=== PATIENT | male | born 1955 | race African-American/Black ===

== ENCOUNTER 2017-07-29 13:39 | Inpatient (IN) | payer OTHER ==
[~2017-07-29] VITALS: Ht 165.1 cm; Wt 102.1 kg
[2017-07-29] MEDS ORDERED: SODIUM CHLORIDE 0.9% 1,000 ML IV ONE (14:12)
[2017-07-29 14:48] LABS: INR 1.3; PROTHROMBIN TIME 13.2 sec (9.4-11.6)
[2017-07-29 14:49] LABS: BASOPHILS % 1.2 % (0.0-2.0); EOSINOPHILS % 1.5 % (0.0-5.0); HEMATOCRIT. 30.1 % (42.0-52.0); HEMOGLOBIN. 10.4 g/dL (14.0-18.0); LYMPHOCYTES % 39.1 % (20.0-50.0); MEAN CORPUSCULAR VOLUME 98.4 fL (80.0-94.0); MEAN PLATELET VOLUME 8.8 fl (7.4-10.4); MONOCYTES % 7.4 % (2.0-8.0); NEUTROPHILS % 50.8 % (40.0-76.0); PLATELET 79 x1000/uL (130-400); RED BLOOD CELL COUNT 3.05 mill/uL (4.7-6.1); RED CELL DISTRIBUTION WIDTH 17.2 % (11.6-14.6)
[2017-07-29 15:01] LABS: AMMONIA 130 uMol/L (<32); CARBON DIOXIDE 21 mEq/L (21-32); CHLORIDE 111 mEq/L (98-107); CREATINE KINASE 143 IU/L (39-308); ETHANOL BLOOD < 10 mg/dL; TROPONIN I < 0.02 ng/mL (0.00-0.04)
[2017-07-29] MEDS ORDERED: IBUP-2030 PO (15:29)
[2017-07-29] MEDS ORDERED: RANI150T7 PO (15:29)
[2017-07-29] MEDS ORDERED: LACTULOSE 20G/30ML UDC PO ONE (15:30)
[2017-07-29] MEDS ORDERED: METF10002 PO (15:31)
[2017-07-29] MEDS ORDERED: HYDR12.54 PO (15:31)
[2017-07-29] MEDS ORDERED: OMEP20TA2 PO (15:31)
[2017-07-29] MEDS ORDERED: LISI-186 PO (15:31)
[2017-07-29 15:37] LABS: CLARITY URINE CLEAR (CLEAR); COLOR URINE YELLOW (YELLOW); GLUCOSE URINE NEGATIVE (NEGATIVE); KETONES URINE TRACE (NEGATIVE); LEUKOCYTE ESTERASE URINE TRACE (NEGATIVE); NITRITE URINE POSITIVE (NEGATIVE); OCCULT BLOOD URINE NEGATIVE (NEGATIVE); PH URINE 7.5 (4.5-8.0); PROTEIN URINE NEGATIVE (NEGATIVE); SPECIFIC GRAVITY URINE 1.012 (1.005-1.030)
[2017-07-29 16:08] LABS: *AMPHETAMINES SCREEN URINE NEGATIVE (NEGATIVE); *BARBITURATES SCREEN URINE NEGATIVE (NEGATIVE); *BENZODIAZEPINES SCREEN URINE NEGATIVE (NEGATIVE); *COCAINE SCREEN URINE NEGATIVE (NEGATIVE); CANNABINOID URINE SCREEN NEGATIVE (NEGATIVE); METHADONE URINE SCREEN NEGATIVE (NEGATIVE); OPIATES URINE SCREEN NEGATIVE (NEGATIVE); PHENCYCLIDINE URINE SCREEN NEGATIVE (NEGATIVE)
[2017-07-29] MEDS ORDERED: SODIUM CHLORIDE 0.9% 1000ML BAG (SEPSIS BOLUS) IV ONE (16:15)
[2017-07-29] MEDS ORDERED: ENOXAPARIN 40MG/0.4ML SYR SUBCUT SCH (16:45)
[2017-07-29] MEDS ORDERED: ACETAMINOPHEN 325MG TABLET PO PRN (16:45)
[2017-07-29] MEDS ORDERED: GUAIFENESIN 200MG/10ML SUGAR FREE UDC PO PRN (16:45)
[2017-07-29] MEDS ORDERED: ONDANSETRON HCL 4MG/2ML VIAL IV PRN (16:45)
[2017-07-29] MEDS ORDERED: MAGNESIUM/ALUMINUM HYDROXIDE/SIMETHICONE 30ML UDC PO PRN (16:45)
[2017-07-29] MEDS ORDERED: CLONIDINE 0.1MG TABLET PO PRN (16:45)
[2017-07-29] MEDS ORDERED: DOCUSATE SODIUM 100MG CAPSULE PO PRN (16:45)
[2017-07-29] MEDS ORDERED: DIPHENHYDRAMINE 50MG/ML VIAL IV PRN (16:45)
[2017-07-29] MEDS ORDERED: IPRATROPIUM/ALBUTEROL 0.5-3(2.5)MG/3ML NEB INH PRN (16:45)
[2017-07-29] MEDS ORDERED: IOHEXOL-300 100 ML BOTTLE ONE (17:16)
[2017-07-29 18:31] VITALS: BP 145/76
[2017-07-29 20:00] VITALS: BP 157/92
[2017-07-29] MEDS ORDERED: INFLUENZA VIRUS VACCINE 0.5ML SYR IM ONE (20:00)
[2017-07-29] MEDS ORDERED: PNEUMOCOCCAL 23-VAL P-SAC VAC 0.5 ML IM ONE (20:00)
[2017-07-29] MEDS ORDERED: NA PHOS,M-B/NA PHOS,DI-BA ENEMA 118ML PR PRN (20:00)
[2017-07-29] MEDS: ENOXAPARIN 30MG/0.3ML SYR SUBCUT SCH ×2 (21:00→21:56)
[2017-07-29] MEDS: THIAMINE HCL 100MG TABLET PO SCH ×2 (21:00→21:56)
[2017-07-29] MEDS: SODIUM CHLORIDE 0.9% INJ 3ML FLUSH IVF SCH ×2 (21:56→22:00)
[2017-07-29] MEDS: LACTULOSE 20G/30ML UDC PO SCH ×2 (21:56→22:00)
[2017-07-30 05:42] LABS: BASOPHILS % 1.7 % (0.0-2.0); EOSINOPHILS % 1.6 % (0.0-5.0); HEMATOCRIT. 30.1 % (42.0-52.0); HEMOGLOBIN. 10.3 g/dL (14.0-18.0); LYMPHOCYTES % 35.2 % (20.0-50.0); MEAN CORPUSCULAR HEMOGLOBIN 33.6 pg (28.0-32.0); MEAN CORPUSCULAR VOLUME 98.6 fL (80.0-94.0); MEAN PLATELET VOLUME 9.2 fl (7.4-10.4); MONOCYTES % 9.3 % (2.0-8.0); NEUTROPHILS % 52.2 % (40.0-76.0); PLATELET 79 x1000/uL (130-400); RED BLOOD CELL COUNT 3.06 mill/uL (4.7-6.1); RED CELL DISTRIBUTION WIDTH 17.3 % (11.6-14.6)
[2017-07-30] MEDS: SODIUM CHLORIDE 0.9% INJ 3ML FLUSH IVF SCH ×3 (06:00→20:55)
[2017-07-30] MEDS: LACTULOSE 20G/30ML UDC PO SCH ×5 (06:00→23:45)
[2017-07-30 06:21] LABS: CARBON DIOXIDE 22 mEq/L (21-32); CHLORIDE 110 mEq/L (98-107); HDL CHOLESTEROL 49 mg/dL (40-59); LDL CHOLESTEROL 133 mg/dL (5-100)
[2017-07-30 08:26] VITALS: BP 120/73
[2017-07-30] MEDS: FOLIC ACID 1MG TABLET PO SCH (08:33)
[2017-07-30] MEDS: THIAMINE HCL 100MG TABLET PO SCH (08:37)
[2017-07-30 08:51] LABS: AMMONIA 122 uMol/L (<32)
[2017-07-30] MEDS: ENOXAPARIN 30MG/0.3ML SYR SUBCUT SCH (08:51)
[2017-07-30 12:01] VITALS: BP 138/84
[2017-07-30] MEDS: AMLODIPINE 5MG TABLET PO SCH (12:42)
[2017-07-30 15:34] VITALS: BP 126/82
[2017-07-30 16:14] VITALS: BP 128/78
[2017-07-30 20:00] VITALS: BP 118/55
[2017-07-31] VITALS: BP 120/76
[2017-07-31 04:00] VITALS: BP 101/51
[2017-07-31] MEDS: LACTULOSE 20G/30ML UDC PO SCH ×5 (04:16→20:54)
[2017-07-31] MEDS: SODIUM CHLORIDE 0.9% INJ 3ML FLUSH IVF SCH ×3 (04:17→20:55)
[2017-07-31 08:37] VITALS: BP 99/49
[2017-07-31] MEDS: AMLODIPINE 5MG TABLET PO SCH (08:59)
[2017-07-31] MEDS: FOLIC ACID 1MG TABLET PO SCH (09:00)
[2017-07-31 10:57] LABS: AMMONIA 91 uMol/L (<32)
[2017-07-31] MEDS: THIAMINE HCL 100MG TABLET PO SCH (11:32)
[2017-07-31 12:20] VITALS: BP 117/64
[2017-07-31] MEDS ORDERED: LACT10SO6 PO (17:37)
[2017-07-31 20:00] VITALS: BP 122/72
[2017-07-31] MEDS ORDERED: SULF1TAB48 PO (22:14)
[2017-07-31] MEDS ORDERED: SIMETHICONE 80MG TABLET CHEW PO PRN (22:15)
[2017-08-01] VITALS: BP 113/60
[2017-08-01] MEDS: LACTULOSE 20G/30ML UDC PO SCH ×5 (00:38→16:00)
[2017-08-01] MEDS: SULFAMETHOXAZOLE/TRIMETHOPRIM 400/80MG TAB PO SCH ×2 (00:38→08:58)
[2017-08-01 04:00] VITALS: BP 103/60
[2017-08-01] MEDS: SODIUM CHLORIDE 0.9% INJ 3ML FLUSH IVF SCH ×2 (04:11→12:53)
[2017-08-01 06:56] LABS: BASOPHILS % 1.1 % (0.0-2.0); EOSINOPHILS % 2.1 % (0.0-5.0); HEMATOCRIT. 28.8 % (42.0-52.0); HEMOGLOBIN. 9.7 g/dL (14.0-18.0); LYMPHOCYTES % 26.5 % (20.0-50.0); MEAN CORPUSCULAR HEMOGLOBIN 33.2 pg (28.0-32.0); MEAN CORPUSCULAR VOLUME 98.4 fL (80.0-94.0); MEAN PLATELET VOLUME 9.2 fl (7.4-10.4); MONOCYTES % 10.5 % (2.0-8.0); NEUTROPHILS % 59.8 % (40.0-76.0); PLATELET 74 x1000/uL (130-400); RED BLOOD CELL COUNT 2.93 mill/uL (4.7-6.1); RED CELL DISTRIBUTION WIDTH 16.6 % (11.6-14.6)
[2017-08-01 06:59] LABS: AMMONIA 63 uMol/L (<32)
[2017-08-01 08:00] VITALS: BP 123/80
[2017-08-01] MEDS: FOLIC ACID 1MG TABLET PO SCH (08:57)
[2017-08-01] MEDS: AMLODIPINE 5MG TABLET PO SCH (08:58)
[2017-08-01] MEDS: THIAMINE HCL 100MG TABLET PO SCH (08:58)
[2017-08-01 12:00] VITALS: BP 112/61
[2017-08-01] MEDS ORDERED: ONDANSETRON HCL 4MG/2ML VIAL IV NR (12:41)
[2017-08-01] MEDS ORDERED: PANTOPRAZOLE SODIUM 40 MG/VIAL IV NR (12:45)
[2017-08-01 15:41] VITALS: BP 108/56
[2017-08-01 16:00] VITALS: BP 108/56
== END 2017-08-01 18:51 | disposition home or self-care (01) | DRG 441 ==
LOC: EDBD 13:39 → ER 14:21 → 5WST 15:31 → EDBEDREQ 15:33 → EDBEDREQTM 15:33 → ENRESERV 16:21
PROVIDERS: ADMIT Family Medicine; ATTEND Family Medicine
DX: K72.00 Acute and subacute hepatic failure without coma (principal); E43 Unspecified severe protein-calorie malnutrition; D61.818 Other pancytopenia; K85.10 Biliary acute pancreatitis without necrosis or infection; E87.2 Acidosis; K74.60 Unspecified cirrhosis of liver; K80.20 Calculus of gallbladder without cholecystitis without obstruction; E11.9 Type 2 diabetes mellitus without complications; E78.5 Hyperlipidemia, unspecified; K21.9 Gastro-esophageal reflux disease without esophagitis; I10 Essential (primary) hypertension; K44.9 Diaphragmatic hernia without obstruction or gangrene; Z68.37 Body mass index [BMI] 37.0-37.9, adult
CPT/HCPCS: 36415; 70450; 71010; 74177; 76705; 80053; 80061; 80076; 80305; 81001; 82140; 82248; 82550; 83605; 83690; 83880; 84484; 85025; 85610; 87040; 87077; 87086; 87186; 92610; 93005; 93306; 96360; 97116; 97162; 99291; C9113; G0482; J1650; J2405; J7030; Q9967